=== PATIENT | female | born 1990 | race Two or more races ===

== ENCOUNTER → 2017-08-12 | Outpatient (CLI) | payer BC ==
[2017-08-12 09:59] LABS: Basophils # (auto) 0 uL; Basophils % (auto) 0.5 % (0.0-2.0); Eosinophils # (auto) 0.1 uL; Hematocrit 40.8 % (36.0-46.0); Hemoglobin 14.1 g/dL (12.2-16.2); Lymphocytes # (auto) 1.1 uL; Lymphocytes % (auto) 17.7 % (10.0-50.0); Mean Corpuscular Hemoglobin 31.6 pg (28.0-32.0); Mean Corpuscular Hgb Conc. 34.5 g/dL (32.0-36.0); Mean Corpuscular Volume 91.9 fL (80.0-100.0); Monocytes # (auto) 0.5 uL; Monocytes % (auto) 7.8 % (0.0-12.0); Neutrophils # (auto) 4.6 uL; Nucleated Red Blood Cells % 0.1 %; Platelet Count (auto) 268 10^3/uL (140-450); Red Blood Cells 4.44 10^6/uL (4.0-5.20); Red Cell Distribution Width 13.5 % (11.8-14.3); White Blood Cell 6.3 10^3/uL (4.4-10.8)
[2017-08-12 10:15] LABS: Alcohol, Urine < 3.0 mg/dL (0-5); Amphetamine Screen, Urine NEGATIVE (NEGATIVE); Barbiturate Scree,Urine NEGATIVE (NEGATIVE); Benzodiazephine Screen, Urine NEGATIVE (NEGATIVE); Cannabinoid Screen, Urine NEGATIVE (NEGATIVE); Cocaine Screen, Urine NEGATIVE (NEGATIVE); Opiate Scree,Urine NEGATIVE (NEGATIVE); Phencyclidine Screen, Urine NEGATIVE (NEGATIVE)
[2017-08-13 04:15] LABS: RPR Non Reactive (Non Reactive)
== END | disposition home or self-care (01) ==
LOC: LAB 09:16
PROVIDERS: ATTEND Obstetrics & Gynecology
DX: Z34.80 Encounter for supervision of other normal pregnancy, unspecified trimester (principal); Z3A.00 Weeks of gestation of pregnancy not specified
CPT/HCPCS: 36415; 80307; 81220; 83036; 84144; 84702; 85025; 86592; 86703; 86762; 86850; 86900; 86901; 87086; 87340

== ENCOUNTER 2021-06-06 09:17 | Emergency (ER) | payer BC, MEDICAID ==
[~2021-06-06] VITALS: Ht 165.1 cm; Wt 65.8 kg
[2021-06-06] MEDS ORDERED: IBUPROFEN 400 MG TAB PO ONE (15:30)
[2021-06-06 17:28] VITALS: BP 120/72
== END 2021-06-06 17:29 | disposition home or self-care (01) ==
LOC: ER 09:17
DX: M79.605 Pain in left leg (principal); M79.604 Pain in right leg; J45.909 Unspecified asthma, uncomplicated
CPT/HCPCS: 73610; 73630; 93971

== ENCOUNTER 2024-11-30 12:57 | Inpatient (IN) | payer MEDICAID, OTHER ==
[~2024-11-30] VITALS: Ht 167.6 cm; Wt 85.5 kg
--- NOTE | 2024-11-30 14:08 | ED.PDOC ---
Musculoskeletal HPI Comments 34 year old female presents to the ED for the c/c of 6/10 Left Forearm pain. Pt states that she was working out 1x week ago when she layed on her arm during an exercise causing pain. Pt states that her pain has progressively gotten worse, and now radiates down her hand as well as up into her shoulder. No gross abnormality notes, and Localized TTP to the Forearm. Denies fevers chills night sweats nausea vomiting redness around the forearm Denies previous surgeries to the arm or significant injury Numbness/tingling down the arm Denies changes, shortness of breath Chief Complaint: Upper Extremity Time Seen by MD: 13:56 Primary Care Provider: Lev GILLETTE Reviewed Notes: Nurses Notes, Medications, Allergies Allergies: Coded Allergies: Latex (Unverified Allergy, Unknown, 12/01/24) Nifedipine (Unverified Allergy, Unknown, 12/01/24) Home Meds Reported Medications Desogestrel & Ethinyl Estradio (ENSKYCE) Tab, 1 TAB PO DAILY 12/01/24 Information Source: Patient Mode of Arrival: Ambulatory Location: Left Extremity Location: Arm Timing: Weeks Prehospital treatment: None Severity: Mild Able to Move Extremity: Yes Bear Weight: Fully Pain: Mild Hand Dominance: Right Mechanism: None Circumstances: Sporting Onset of Symptoms: After Trauma Symptoms: Pain DVT Risk Factors: NONE Last Tetanus: Unknown Associated signs and symptoms: Arm pain Past Medical History PAST MEDICAL HISTORY: Asthma, Seizures Surgical History: Denies all surgeries DECK STEWARD History: No Pertinent DECK STEWARD History Family History Family History: Reviewed,noncontributory to illness Social History Smoker: Non-Smoker Alcohol: Denies ETOH Use Drugs: Denies Drug Use Lives In: Home Constitutional: denies: chills, diaphoresis, fatigue, fever, malaise, sweats, weakness, others EENTM: denies: blurred vision, double vision, ear bleeding, ear discharge, ear drainage, ear pain, ear ringing, eye pain, eye redness, hearing loss, mouth pain, mouth swelling, nasal discharge, nose bleeding, nose congestion, nose pain, photophobia, tearing, throat pain, throat swelling, voice changes, others Respiratory: denies: cough, hemoptysis, orthopnea, SOB at rest, shortness of breath, SOB with excertion, stridor, wheezing, others Cardiovascular: denies: chest pain, dizzy spells, diaphoresis, Dyspnea on exertion, edema, irregular heart beat, left arm pain, lightheadedness, palpitations, PND, syncope, others Gastrointestinal: denies: abdomen distended, abdominal pain, blood streaked bowels, constipated, diarrhea, dysphagia, difficulty swallowing, hematemesis, melena, nausea, poor appetite, poor fluid intake, rectal bleeding, rectal pain, vomiting, others Genitourinary: denies: abnormal vagina bleeding, burning, dyspareunia, dysuria, flank pain, frequency, hematuria, incontinence, pain, , vagina discharge, urgency, others Neurological: denies: dizziness, fainting, headache, left sided numbness, left sided weakness, numbness, paresthesia, pre-existing deficit, right sided numbness, right sided weakness, seizure, speech problems, tingling, tremors, w eakness, others Musculoskeletal: reports: others (Left arm pain); denies: back pain, gout, joint pain, joint swelling, muscle pain, muscle stiffness, neck pain Integumetry: denies: bruises, change in color, change in hair/nails, dryness, laceration, lesions, lumps, rash, wounds, others Allergic/Immunocompromised: denies: Difficulty Healing, Frequent Infections, Hives, Itching, others Hematologic/Lymphatic: denies: anemia, blood clots, easy bleeding, easy bruising, swollen glands, others Endocrine: denies: excessive hunger, excessive sweating, excessive thirst, excessive urination, flushing, intolerance to cold, intolerance to heat, unexplained weight gain, unexplained weight loss, others Psychiatric: denies: anxiety, bipolar disorder, depression, hopeless, panic disorder, schizophrenia, sleepless, suicidal, others All Other Systems: Reviewed and Negative Physical Exam General Appearance: Mild Distress, Normal HEENT: Normal ENT Inspection, Pharynx Normal, TMs Normal Neck: Full Range of Motion, Normal, Normal Inspection Respiratory: Chest Non-Tender, Lungs Clear, No Respiratory Distress, Normal Breath Sounds Cardiovascular: No JVD, No Murmur, Normal Peripheral Pulses, Regular Rate/Rhythm Breast Exam: Deferred Gastrointestinal: Non Tender, No Pulsatile Mass, Normal Bowel Sounds, Soft Genitalia: Deferred Pelvic: Deferred Rectal: Deferred Extremities: No calf tenderness, Non-tender, No pedal edema Musculoskeletal : Location: Left Extremity Location: Arm (No gross abnormality, Localized TTP to forearm, No erythema or swelling noted. ) Apperance: Normal Neurologic: Alert, No Motor Deficits, Normal Mood Cerebellar Function: Normal Reflexes: Normal Skin: Dry, Normal Color, Warm Lymphatic: No Adenopathy Was a procedure done? Was a procedure done?: No Differential Diagnosis EXT Differential Diagnosis: Cellulitis, Compartment Syndrome, Fracture, Sprain, D islocation, Contusion, Strain, Neurovascular injury X-Ray, Labs, Meds, VS Vital Signs Date Time Temp Pulse Resp B/P (MAP) Pulse Ox O2 Delivery O2 Flow Rate FiO2 11/30/24 22:00 77 19 110/73 (85) 96 11/30/24 20:00 80 11/30/24 20:00 82 12 97 Room Air* 0 21 11/30/24 19:58 98.3 82 12 116/88 (97) 97 98.3 11/30/24 18:00 77 15 96 Room Air* 0 21 11/30/24 18:00 76 11/30/24 17:20 83 13 129/52 (77) 98 11/30/24 13:23 98.3 84 16 103/72 (82) 96 98.3 Lab Test 11/30/24 04:25 Range/Units Urine Test Negative Negative Current Medications Medications (Trade) Dose Ordered Sig/[place] Route Start Time Stop Time Status Last Admin Enoxaparin Sodium (Lovenox) 76 mg ONCE ONCE SC 11/30/24 17:30 11/30/24 17:31 DC 11/30/24 17:41 X-Ray, Labs, Meds, VS Comment 34 year old female presents to the ED for the c/c of 6/10 Left Forearm pain. Patient arrives alert and oriented, ABC's intact, afebrile, vital signs stable, saturating well in room air Diagnostic imaging ordered by me and results interpreted by radiology :Impression: No deep venous thrombus identified in the LEFT upper extremity vessels evaluated above.Positive thrombus is present in the left brachial vein. Spoke with Dr. iLon. IR: at . reports she does not reach subclavian vein. No indication for thrombectomy at this time The patient's workup reveals that the patient needs further evaluation and/or treatment for the above medical conditions. Patient verbalized understanding of the above and is awaiting further evaluation by the admitting service. Additional MDM Review of External, Non-ED records: External records reviewed. Discussion with independent historian (EMS, family) history obtained from the patient/parents (if applicable) at bedside Chronic conditions affecting care: None Social determinants of health affecting care: None Time of 1ST Reevaluation: 14:26 Reevaluation 1ST: Unchanged Patient Education/Counseling: Diagnosis, Treatment Family Education/Counseling: No Family Present Departure 1 Departure Time of Disposition: 16:34 Impression: Primary Impression: Brachial vein thrombosis, left Qualified Codes: I82.622 - Acute embolism and thrombosis of deep veins of left upper extremity Disposition: ADMITTED INPATIENT Condition: Serious Critical Care Note Critical Care Time?: No Stability Stability form required: No Heart Score Heart Score: Heart Score Response (Comments) Value History N/A 0 EKG N/A 0 Age N/A 0 Risk Factors N/A 0 Troponin N/A 0 Total 0 I personally scribed for VIPIN NEWSOME NP ([email or web address]) on 11/30/24 at 14:08. Electronically submitted by Reji Bautista ([email or web address]). I personally scribed for VIPIN NEWSOME NP ([email or web address]) on 11/30/24 at 14:47. Electronically submitted by Reji Bautista ([email or web address]). VIPIN NEWSOME NP Nov 30, 2024 14:08
--- NOTE | 2024-11-30 14:33 | DVH ---
LEFT Upper Extremity Venous Duplex Clinical History: r/o dvt Comparison: None Technique: Duplex Doppler evaluation of the venous system of the LEFT lower neck and upper extremity including color Doppler and spectral/pulsed waveform analysis was performed. Findings: The internal jugular vein demonstrates appropriate compressibility and waveform variability. The subclavian vein is patent on color Doppler evaluation without intraluminal thrombus and demonstra jessica waveform variability. The visualized portion of the brachiocephalic vein is patent on color Doppler evaluation without intr aluminal thrombus and demonstrates waveform variability. The axillary vein demonstrates appropriate compressibility and waveform variability. The brachial vein demonstrates noncompressibility and possible thrombus. The basilic vein demonstrates appropriate compressibility and patency on Doppler evaluation. The cephalic vein demonstrates appropriate compressibility and patency on Doppler evaluation. Impression: No deep venous thrombus identified in the LEFT upper extremity vessels evaluated above. Positive thrombus is present in the left brachial vein.
[2024-11-30] MEDS ORDERED: ENOXAPARIN SOD 100 MG/1 ML SYRINGE SC ONE (16:45)
[2024-11-30] MEDS: ENOXAPARIN SOD 80 MG/0.8ML SYRINGE SC ONE (17:41)
[2024-11-30 18:00] VITALS: PULSE 77; RESP 15; O2SAT 96
[2024-11-30 20:00] VITALS: PULSE 82; RESP 12; O2SAT 97
--- NOTE | 2024-11-30 22:55 | DVHHP2 ---
History of Present Illness History of Present Illness This is a 34-year-old female with past medical history of Breast augmentation surgery in 2016, recently started OCP x2 months ago came to ED with the complain of left forearm pain for 1 week which is getting worse day by day, 5 - 7/10 intensity. aggravated on movement and mild relieved on rest, radiates to arm and shoulder. Patient denies any recent history of sick contact/trauma/injury/MVA/any recent IV drug use. No family history of blood coagulation disorder. Patient denies any fever, chest pain, cough, SOB, abdominal pain, dysuria or any acute distress. PAST MEDICAL HISTORY: Nothing contributory Surgical History: Breast augmentation surgery in 2016 [employer]ANCE History: LMP 3 WEEKS AGO Family History: noncontributory Social History Smoker: Non-Smoker Alcohol: Denies ETOH Use Drugs: Denies Drug Use Lives In: Home ALLERGY: LATEX, PROCARDIA PCP: UNKNOWN Review of Systems Constitutional: No: Fever, Chills, Sweats, Weakness, Malaise, Other Eyes: No: Pain, Vision change, Conjunctivae inflammation, Eyelid inflammation, Other, Redness ENT: No: Ear pain, Ear discharge, Nose pain, Nose discharge, Nose congestion, Mouth pain, Mouth swelling, Throat pain, Throat swelling, Other Respiratory: No: Cough, Dry, Shortness of breath, SOB with excertion, Wheezing, Hemoptysis, Pleuritic Pain, Sputum, Wheezing, Other Cardiovascular: No: Chest Pain, Palpitations, Orthopnea, Paroxysmal Noc. Dyspnea, Edema, Lt Headedness, Other Gastrointestinal: No: Nausea, Vomiting, Abdominal Pain, Diarrhea, Constipation, Melena, Hematochezia, Other Genitourinary: No Dysuria, No Frequency, No Incontinence, No Hematuria, No Retention, No Other Musculoskeletal: shoulder pain, arm pain Skin: No: Rash, Lesions, Jaundice, Bruising, Other Neurological: No: Weakness, Numbness, Incoordination, Change in speech, Confusion, Seizures, Other Allergies: Coded Allergies: Latex (Unverified Allergy, Unknown, 12/01/24) Nifedipine (Unverified Allergy, Unknown, 12/01/24) Exam Vital Signs Vital Signs Date Time Temp Pulse Resp B/P (MAP) Pulse Ox O2 Delivery O2 Flow Rate FiO2 11/30/24 22:00 77 19 110/73 (85) 96 11/30/24 20:00 Room Air* 0 21 11/30/24 19:58 98.3 98.3 General Appearance: Alert, Oriented X3, Cooperative, mild distress HEENT: Atraumatic, PERRLA, EOMI Respiratory: Clear to auscultation, Normal air movement Cardiovascular: Regular rate, Normal S1, Normal S2 Abdominal: Normal bowel sounds, Soft, No tenderness, No hepatospenomegaly, No masses Extremities: No clubbing, No cyanosis, No edema, Normal pulses, Other (TENDERNESS PRESENT LEFT FOREARM AND ARM ON DEEP PALPATION AND MOVEMENT) Skin: No rashes, No breakdown, No significant lesion SEPSIS Sepsis Screen Date sepsis recognized/suspect: Nov 30, 2024 Time Sepsis recognized/suspect: 1322 Recent Procedure: No On Antibiotic Therapy: No Respiratory Rate >20: No Heart Rate >90: No Temp<36 C (96.8 F) or >38.3 C: No SBP <90 or MAP <65 mmHG: No New Acute Mental Status Change: No Is the patient on CPAP, BIPAP,: No Physician Orders Admit (11/30/24 22:52) Nitroglycerin Sublingual (Ntrostat Subli (11/30/24 23:00) Morphine Sulfate Injection (11/30/24 23:00) Vital Signs Date Time Temp Pulse Resp B/P (MAP) Pulse Ox O2 Delivery O2 Flow Rate FiO2 11/30/24 22:00 77 19 110/73 (85) 96 11/30/24 20:00 80 11/30/24 20:00 82 12 97 Room Air* 0 21 11/30/24 19:58 98.3 82 12 116/88 (97) 97 98.3 11/30/24 18:00 77 15 96 Room Air* 0 21 11/30/24 18:00 76 11/30/24 17:20 83 13 129/52 (77) 98 Medications Medications Dose Ordered Sig/[place] Route Start Time Stop Time Status Last Admin Dose Admin Enoxaparin Sodium 76 mg ONCE ONCE SC 11/30/24 17:30 11/30/24 17:31 DC 11/30/24 17:41 76 MG Assessment/Plan Assessment/Plan # INTRACTABLE LEFT UPPER EXTREMITY PAIN DUE TO LEFT BRACHIAL VEIN THROMBOSIS -Patient came with left upper extremity pain -Received enoxaparin 76 mg sc in ED. -US UPPER EXT : No deep venous thrombus identified in the LEFT upper extremity vessels evaluated above. Positive thrombus is present in the left brachial vein. -PT, PTT, test, LFT -Enoxaparin 65 mg sc b.i.d. -NORCO 5-325 mg p.o. q.6 p.r.n. for tujpjipw-ji-jnvosp pain. # PROVOKED DVT DUE TO OCP USE -Patient recently started oral contraceptive pill x 2 months -Stopped OCP as it can provoke DVT. -Age-appropriate cancer screening to rule out DVT-as outpatient # OBESITY, BMI 30.0 -Lifestyle modification DIET: Regular GI prophylaxis: Famotidine 20 mg p.o. b.i.d. DVT prophylaxis: Patient on enoxaparin for DVT. Goals of care discussions, more than 26 minute spent. Full code status. Case discussed with Dr. Larose. Plan discussed with: Patient, Other (NURSE) My Orders Orders - NATE BRYANT Procedure Category Date Status Time Admit ADMIT 11/30/24 Verified 22:52 Nitroglycerin PHA 11/30/24 Verified Sublingual (Ntrostat 23:00 Morphine Sulfate PHA 11/30/24 Verified Injection 23:00 Date of Service: Nov 30, 2024 Billing Provider: NEETA LAROSE MD Common Visit Codes: [id number] INP/OBS CARE (HIGH) Secondary Visit Codes: [id number] CARE PLAN 30 MINUTES NATE BRYANT Nov 30, 2024 22:55
[2024-11-30] MEDS ORDERED: NITROGLYCERIN 0.4 MG SL TAB SL PRN (23:00)
[2024-11-30] MEDS ORDERED: MORPHINE SULFATE INJ 2 MG/ml SYRG IV PRN (23:00)
[2024-12-01] VITALS (9 sets, daily range): BP systolic 109–136; BP diastolic 65–90; PULSE 64–99; RESP 16–20; TEMP 95.2–99.8; O2SAT 96–100
[2024-12-01] MEDS: PANTOPRAZOLE 40 MG TAB PO ONE (00:13)
[2024-12-01] MEDS ORDERED: DESO1TAB PO (01:52)
--- NOTE | 2024-12-01 05:13 | DVH ---
CHEST RADIOGRAPH Indication: R/O PULMONARY DISEASE Technique: Single frontal view of the chest was obtained COMPARISON: None FINDINGS: Lines and Tubes: None Lungs: Clear Pleura: No effusion. No pneumothorax. Cardiomediastinal contours: Unremarkable Bones: Unremarkable IMPRESSION: 1. No acute disease.
[2024-12-01] MEDS: ENOXAPARIN SOD 80 MG/0.8ML SYRINGE SC SCH (05:25)
[2024-12-01] MEDS: PANTOPRAZOLE 40 MG TAB PO SCH (05:26)
[2024-12-01] MEDS: HYDROcodone-ACET 5/325MG TAB PO PRN (05:31)
[2024-12-01 07:01] LABS: Alanine Aminotransferase < 9 U/L (7-40); Bilirubin, Total 0.3 mg/dL (0.2-1.0)
--- NOTE | 2024-12-01 07:50 | DVHPNRES ---
Progress Note Date Seen: Dec 01, 2024 Resident Creating Document: GUILLERMO SCOTT RESIDENT Has the PT tested + for MRSA If YES, has PT been informed?: No Medical Necessity Reason Pt with a Central, PICC or Fol: No Subjective Review of Systems 34-year-old female with past medical history of Breast augmentation surgery in 2016, recently started OCP came to ED with complaint of left forearm pain for 1 week which is getting worse day by day, 7/10 intensity, aggravated on movement and relieved on rest, radiates to arm and shoulder. Patient denies any recent history of sick contact/trauma/injury/MVA/any recent IV drug use. No family history of blood coagulation disorder. There are family history of breast cancer. Patient denies any fever, chest pain, cough, SOB, abdominal pain, dysuria or any acute distress. Patient had left upper extremity pain due to left brachial vein thrombosis. Left Upper Extremity Venous Duplex shows positive thrombus is present in the left brachial vein and no deep venous thrombus identified in the Left Upper extremity vessels evaluated above. Chest X-ray shows no acute disease. We have started on [place] and Lovenox. Today patient still has pain. CT scan of Left Upper Extremity with contrast and Coagulation studies are ordered. Breast examination was performed and reveal normal. Patient reports: No new complaints Changes from previous H/P or p: No Changes Objective vital signs Vital Sign Date Time Temp Pulse Resp B/P (MAP) Pulse Ox O2 Delivery O2 Flow Rate FiO2 12/01/24 05:00 98.6 99 18 125/83 (97) 98 98.6 12/01/24 01:45 Room Air* 0 21 Total Intake and Output 11/30/24 11/30/24 12/01/24 14:59 22:59 06:59 Intake Total 80 ml Balance 80 ml medications Current Medications Medications Dose Ordered Sig/[place] Route Start Time Stop Time Status Last Admin Dose Admin Nitroglycerin 0.4 mg Q5MINP PRN SL 11/30/24 23:00 Morphine Sulfate 2 mg Q30M PRN IV 11/30/24 23:00 Pantoprazole Sodium 40 mg DAILY@0600 PO 12/01/24 06:00 12/01/24 05:26 40 MG Enoxaparin Sodium 80 mg Q12H SC 12/01/24 05:00 12/01/24 05:25 80 MG Acetaminophen/ Hydrocodone Bitart 1 tab Q6HPRN PRN PO 12/01/24 01:45 12/01/24 05:31 1 TAB Examination Constitutional: No: Fever, Chills, Sweats, Weakness, Malaise, Other Eyes: No: Pain, Vision change, Conjunctivae inflammation, Eyelid inflammation, Other, Redness ENT: No: Ear pain, Ear discharge, Nose pain, Nose discharge, Nose congestion, Mouth pain, Mouth swelling, Throat pain, Throat swelling, Other Respiratory: No: Cough, Dry, Shortness of breath, SOB with excertion, Wheezing, Hemoptysis, Pleuritic Pain, Sputum, Wheezing, Other Cardiovascular: No: Chest Pain, Palpitations, Orthopnea, Paroxysmal Noc. Dyspnea, Edema, Lt Headedness, Other Gastrointestinal: No: Nausea, Vomiting, Abdominal Pain, Diarrhea, Constipation, Melena, Hematochezia, Other Genitourinary: No Dysuria, No Frequency, No Incontinence, No Hematuria, No Retention, No Other Musculoskeletal: shoulder pain, arm pain Skin: No: Rash, Lesions, Jaundice, Bruising, Other Neurological: No: Weakness, Numbness, Incoordination, Change in speech, Confusion, Seizures, Other Allergies: Coded Allergies: Latex (Unverified Allergy, Unknown, 12/01/24) Nifedipine (Unverified Allergy, Unknown, 12/01/24) Problem List/Assessment/Plan Problem List/Assessment/Plan # INTRACTABLE LEFT UPPER EXTREMITY PAIN DUE TO LEFT BRACHIAL VEIN THROMBOSIS -Patient came with left upper extremity pain -Received enoxaparin 76 mg sc in ED. -US UPPER EXT : No deep venous thrombus identified in the LEFT upper extremity vessels evaluated above. Positive thrombus is present in the left brachial vein. -PT, PTT, test, LFT -Enoxaparin 65 mg sc b.i.d. -NORCO 5-325 mg p.o. q.6 p.r.n. for [id number] pain. -CT scan to left upper extremity # PROVOKED DVT DUE TO OCP USE -Patient recently started oral contraceptive pill x 2 months -Stopped OCP as it can provoke DVT. -Age-appropriate cancer screening to rule out DVT-as outpatient # OBESITY, BMI 30.0 -Lifestyle modification DIET: Regular GI prophylaxis: Famotidine 20 mg p.o. b.i.d. DVT prophylaxis: Patient on enoxaparin for DVT. Goals of care discussions, more than 26 minute spent. Full code status. Case discussed with Dr. Bonilla. Plan discussed with: Patient, Other (NURSE) Plan discussed with: Patient, Other Sepsis reassessment post fluid Is the fluid challenge complet: No Respiratory Effort: Non-Labored Respiratory Pattern: Regular Date of Service: Dec 01, 2014 Billing Provider: IRAIS BONILLA MD Common Visit Codes: [id number] INP/OBS CARE(HIGH) GUILLERMO SCOTT RESIDENT Dec 01, 2024 07:50 IRAIS BONILLA MD Dec 01, 2024 22:06
[2024-12-01 08:20] LABS: Hematocrit 38.0 % (36.0-46.0); Hemoglobin 13.1 g/dL (12.2-16.2); Mean Corpuscular Hemoglobin 30.6 pg (28.0-32.0); Mean Corpuscular Volume 88.5 fL (80.0-100.0); Nucleated Red Blood Cells % 0.0 %
[2024-12-01 10:51] LABS: Chloride 105 mmol/L (98-107); Potassium 4.1 mmol/L (3.5-5.1); Sodium 138 mmol/L (136-145)
[2024-12-01 10:52] LABS: Anion Gap 10 (5-15); Calcium 9.7 mg/dL (8.7-10.4); Carbon Dioxide 23 mmol/L (20-31)
[2024-12-01 10:57] LABS: BUN/Creatinine Ratio 17.8 (10.0-20.0); Blood Urea Nitrogen 13 mg/dL (9-23); Glucose 79 mg/dL (74-106)
[2024-12-01 11:22] LABS: Amphetamine Screen, Urine Neg (NEGATIVE); Barbiturate Scree,Urine Neg (NEGATIVE); Benzodiazephine Screen, Urine Neg (NEGATIVE); Cannabinoid Screen, Urine Neg (NEGATIVE); Cocaine Screen, Urine Neg (NEGATIVE); Opiate Scree,Urine Neg (NEGATIVE); Phencyclidine Screen, Urine Neg (NEGATIVE)
[2024-12-01] MEDS ORDERED: IOHEXOL 350 MG/ML 100ML IJ ONE (14:07)
[2024-12-01 14:32] LABS: INR 0.96 (0.9-1.15); Partial Thromboplastin Time 32.2 SEC (24.5-34.5); Prothrombin Time 10.2 sec (9.3-11.8)
--- NOTE | 2024-12-01 16:36 | DVH ---
EXAM: CT LT UPPER EXTREMITY W CONTRAS INDICATION: Thrombosis of left brachial vein EXAM DATE: 12/01/2024 02:15 PM COMPARISON: None TECHNIQUE: Multiple axial CT images of the left upper extremity were obtained using bone algorithm. A xial and coronal reformatting was done. Bone and soft tissue windows were reviewed. Radiation Dose Information: CT Dose: CTDI volume is 20.97 mGy. Dose-length product is 1653.79 mGy*cm Findings/Impression: There is no evidence of an acute fracture, dislocation, blastic, or lytic lesions. Left breast implant. No joint effusion or superficial soft tissue abnormalities. Left upper extremity arteries are patent. Venous system cannot be assessed on this exam.
[2024-12-01] MEDS: ACETAMINOPHEN 325 MG TAB PO PRN (18:46)
[2024-12-01] MEDS: ONDANSETRON HCL 4 MG/2 ML VIAL IV ONE (22:24)
[2024-12-01] MEDS: MORPHINE SULFATE INJ 2 MG/ml SYRG IV ONE (22:25)
--- NOTE | 2024-12-02 00:24 | DVH ---
COMPUTERIZED TOMOGRAPHY OF THE HEAD WITHOUT CONTRAST REASON FOR STUDY: SEVERE HEADACHE. COMPARISON: None TECHNIQUE: Helical tomographic scans were obtained through the brain. 2-D coronal and sagittal refor matted images are provided. Radiation optimization: All CT scans at this facility use at least one of these dose optimization techniques: Automated exposure control mA and/or kV adjustment per patient s ize (includes targeted exams where dose is matched to clinical indication) or iterative reconstructio n. RADIATION DOSE: CTDI: 60 mGy DLP: 1064 mGy-cm FINDINGS: No suspicious intracranial hyperdensity to suggest acute blood. There is no mass effect n or midline shift. There is no hydrocephalus. The suprasellar cistern is intact. The calvarium is inta ct. The visualized mastoid air cells and paranasal sinuses are clear. IMPRESSION: No acute intracranial abnormality.
[2024-12-02 01:00] VITALS: BP_SYST 111; BP_SYST 121; BP_DIAS 60; BP_DIAS 73; PULSE 69; PULSE 77; RESP 18; RESP 19; TEMP 97.7; TEMP 98.7; O2SAT 100; O2SAT 97
[2024-12-02 05:00] VITALS: BP 112/69; PULSE 66; RESP 16; TEMP 97.8; O2SAT 97
[2024-12-02 05:17] LABS: Hematocrit 38.0 % (36.0-46.0); Hemoglobin 13.1 g/dL (12.2-16.2); Mean Corpuscular Hemoglobin 30.4 pg (28.0-32.0); Mean Corpuscular Volume 87.9 fL (80.0-100.0); Nucleated Red Blood Cells % 0.1 %
[2024-12-02 05:30] LABS: Anion Gap 8 (5-15); Carbon Dioxide 25 mmol/L (20-31); Chloride 105 mmol/L (98-107); Potassium 3.8 mmol/L (3.5-5.1); Sodium 138 mmol/L (136-145)
[2024-12-02 05:31] LABS: Calcium 9.3 mg/dL (8.7-10.4)
[2024-12-02 05:36] LABS: BUN/Creatinine Ratio 14.1 (10.0-20.0); Blood Urea Nitrogen 10 mg/dL (9-23)
[2024-12-02 05:40] LABS: Glucose 108 mg/dL (74-106)
[2024-12-02 09:00] VITALS: BP 120/67; PULSE 74; RESP 17; TEMP 98.4; O2SAT 96
--- NOTE | 2024-12-02 10:38 | DVHPNRES ---
Progress Note Date Seen: Dec 02, 2024 Resident Creating Document: GUILLERMO SCOTT RESIDENT Has the PT tested + for MRSA If YES, has PT been informed?: No Medical Necessity Reason Pt with a Central, PICC or Fol: No Subjective Review of Systems 34-year-old female with past medical history of Migraine, Breast augmentation surgery in 2016, recently started OCP came to ED with complaint of left forearm pain for 1 week which is getting worse day by day, 7/10 intensity, aggravated on movement and relieved on rest, radiates to arm and shoulder. Patient denies any recent history of sick contact/trauma/injury/MVA/any recent IV drug use. No family history of blood coagulation disorder. There are family history of breast cancer. Patient denies any fever, chest pain, cough, SOB, abdominal pain, dysuria or any acute distress. Patient had left upper extremity pain due to left brachial vein thrombosis. Left Upper Extremity Venous Duplex shows positive thrombus is present in the left brachial vein and no deep venous thrombus identified in the Left Upper extremity vessels evaluated above. Chest X-ray shows no acute disease. We have started on [place] and Lovenox. Today patient still has pain. CT scan of Left Upper Extremity with contrast and Coagulation studies are ordered. Breast examination was performed and reveal normal. Upper extremity CT scan and Head CT scan was ordered and reveal normal. Rest Room Maid Consult was ordered. Patient reports: No new complaints Changes from previous H/P or p: No Changes Patient reports: No new complaints Changes from previous H/P or p: No Changes Objective vital signs Vital Sign Date Time Temp Pulse Resp B/P (MAP) Pulse Ox O2 Delivery O2 Flow Rate FiO2 12/02/24 09:00 98.4 74 17 120/67 (84) 96 98.4 12/02/24 08:00 Room Air* 0 21 Total Intake and Output 12/01/24 12/01/24 12/02/24 15:00 23:00 07:00 Intake Total 700 ml 600 ml Balance 700 ml 600 ml medications Current Medications Medications Dose Ordered Sig/[place] Route Start Time Stop Time Status Last Admin Dose Admin Pantoprazole Sodium 40 mg DAILY@0600 PO 12/01/24 06:00 12/02/24 05:36 40 MG Enoxaparin Sodium 80 mg Q12H SC 12/01/24 05:00 12/02/24 05:36 80 MG Acetaminophen/ Hydrocodone Bitart 1 tab Q6HPRN PRN PO 12/01/24 01:45 12/01/24 20:28 1 TAB Acetaminophen 650 mg Q6HP PRN PO 12/01/24 18:00 12/02/24 08:12 650 MG laboratory and microbiology Laboratory Tests 12/02/24 04:23 Test 12/02/24 04:23 Range/Units Serum Glucose 108 H 74-106 mg/dL Labs and/or images reviewed: Labs reviewed by me Problem List/Assessment/Plan Problem List/Assessment/Plan # INTRACTABLE LEFT UPPER EXTREMITY PAIN DUE TO LEFT BRACHIAL VEIN THROMBOSIS -Patient came with left upper extremity pain -Received enoxaparin 76 mg sc in ED. -US UPPER EXT : No deep venous thrombus identified in the LEFT upper extremity vessels evaluated above. Positive thrombus is present in the left brachial vein. -PT, PTT, test, LFT -Enoxaparin 65 mg sc b.i.d. -NORCO 5-325 mg p.o. q.6 p.r.n. for [id number] pain. -CT scan to left upper extremity # PROVOKED DVT DUE TO OCP USE -Patient recently started oral contraceptive pill x 2 months -Stopped OCP as it can provoke DVT. -Age-appropriate cancer screening to rule out DVT-as outpatient # OBESITY, BMI 30.0 -Lifestyle modification DIET: Regular GI prophylaxis: Famotidine 20 mg p.o. b.i.d. DVT prophylaxis: Patient on enoxaparin for DVT. Goals of care discussions, more than 26 minute spent. Full code status. Case discussed with Dr. Sommer. Plan discussed with: Patient, Other (NURSE) Plan discussed with: Patient, Other My Orders My Orders Orders - GUILLERMO SCOTT Procedure Category Date Status Time * Rest Room Maid CONS 12/02/24 Transmitted Consult Sepsis reassessment post fluid Is the fluid challenge complet: No Respiratory Effort: Non-Labored Respiratory Pattern: Regular GUILLERMO SCOTT Dec 02, 2024 10:38
[2024-12-02] MEDS ORDERED: APIX5TAB PO (12:29)
[2024-12-02] MEDS ORDERED: FAMO20TA10 PO (12:29)
[2024-12-02] MEDS ORDERED: IBUP1TAB4 PO (12:29)
[2024-12-02 12:37] VITALS: BP 125/78; PULSE 71; RESP 16; TEMP 98.3; O2SAT 96
--- NOTE | 2024-12-02 17:27 | DVHDSRES ---
Discharge Summary Date of Admission Resident Creating Document: GUILLERMO SCOTT RESIDENT Nov 30, 2024 at 22:52 Date of Discharge: Dec 02, 2024 Admitting Diagnosis Left forearm pain Labs/Diagnostic Data: Laboratory Results Test 12/02/24 04:23 12/01/24 14:08 12/01/24 05:31 12/01/24 04:15 White Blood Count 9.6 10^3/uL (4.4-10.8) Red Blood Count 4.32 10^6/uL (4.0-5.20) Hemoglobin 13.1 g/dL (12.2-16.2) Hematocrit 38.0 % (36.0-46.0) Mean Corpuscular Volume 87.9 fL (80.0-100.0) Mean Corpuscular Hemoglobin 30.4 pg (28.0-32.0) Mean Corpuscular Hemoglobin Concent 34.6 g/dL (32.0-36.0) Red Cell Distribution Width 13.7 % (11.8-14.3) Platelet Count 311 10^3/uL (140-450) Mean Platelet Volume 8.6 fL (6.9-10.8) Neutrophils (%) (Auto) 78.8 % (37.0-80.0) Lymphocytes (%) (Auto) 18.6 % (10.0-50.0) Monocytes (%) (Auto) 2.3 % (0.0-12.0) Eosinophils (%) (Auto) 0.0 % (0.0-7.0) Basophils (%) (Auto) 0.3 % (0.0-2.0) Neutrophils # (Auto) 7.5 10 ^3/uL (1.6-8.6) Lymphocytes # (Auto) 1.8 10 ^3/uL (0.4-5.4) Monocytes # (Auto) 0.2 10 ^3/uL (0-1.3) Eosinophils # (Auto) 0 10 ^3/uL (0-0.8) Basophils # (Auto) 0 10 ^3/uL (0-0.2) Nucleated Red Blood Cells 0.1 % Sodium Level 138 mmol/L (136-145) Potassium Level 3.8 mmol/L (3.5-5.1) Chloride Level 105 mmol/L (98-107) Carbon Dioxide Level 25 mmol/L (20-31) Anion Gap 8 (5-15) Blood Urea Nitrogen 10 mg/dL (9-23) Creatinine 0.71 mg/dL (0.550-1.02) Glomerular Filtration Rate Calc 113 mL/min (>90) BUN/Creatinine Ratio 14.1 (10.0-20.0) Serum Glucose 108 mg/dL (74-106) Calcium Level 9.3 mg/dL (8.7-10.4) Prothrombin Time 10.2 sec (9.3-11.8) Prothrombin Time INR 0.96 (0.9-1.15) Activated Partial Thromboplast Time 32.2 SEC (24.5-34.5) Erythrocyte Sedimentation Rate 9 mm/hr (0-20) Total Bilirubin 0.3 mg/dL (0.2-1.0) Aspartate Amino Transferase (AST) 12 U/L (13-40) Alanine Aminotransferase (ALT) < 9 U/L (7-40) C-Reactive Protein High Sensitivity 1.03 mg/dL (<1.0) Urine Opiates Screen Neg (NEGATIVE) Urine Fentanyl Screen Neg (NEGATIVE) Urine Barbiturates Screen Neg (NEGATIVE) Urine Phencyclidine Screen Neg (NEGATIVE) Urine Amphetamines Screen Neg (NEGATIVE) Urine Benzodiazepines Screen Neg (NEGATIVE) Urine Cocaine Screen Neg (NEGATIVE) Urine Cannabinoids Screen Neg (NEGATIVE) Test 11/30/24 04:25 Urine Test Negative (Negative) Other Laboratory Tests 12/02/24 04:23 Brief Hx & Hospital Course: 34-year-old female with past medical history of Migraine, Breast augmentation surgery in 2016, recently started OCP came to ED with complaint of left forearm pain for 1 week which is getting worse day by day, 7/10 intensity, aggravated on movement and relieved on rest, radiates to arm and shoulder. Patient denies any recent history of sick contact/trauma/injury/MVA/any recent IV drug use. No family history of blood coagulation disorder. There are family history of breast cancer. Patient denies any fever, chest pain, cough, SOB, abdominal pain, dysuria or any acute distress. Patient had left upper extremity pain due to left brachial vein thrombosis. Left Upper Extremity Venous Duplex shows positive thrombus is present in the left brachial vein and no deep venous thrombus identified in the Left Upper extremity vessels evaluated above. Chest X-ray shows no acute disease. We have started on [place] and Lovenox. Today patient still has pain. CT scan of Left Upper Extremity with contrast and Coagulation studies are ordered. Breast examination was performed and reveal normal. Upper extremity CT scan and Head CT scan was ordered and reveal normal. Manufacturing Leader Consult was ordered. Condition at Discharge: Fair Final Diagnosis/Problems List # INTRACTABLE LEFT UPPER EXTREMITY PAIN DUE TO LEFT BRACHIAL VEIN THROMBOSIS # PROVOKED DVT DUE TO OCP USE # OBESITY, BMI 30.0 Discharge Disposition: Home SNF Discharge Will this Physician continue t: No Discharge Instruct/Medications Diet: Regular Activity: No Restrictions, As Tolerated Follow Up/Referral: Follow up with PCP in 1 week. Medications: As per EMR Continue other home medications Scheduled Apixaban Base (Eliquis), 5 MG PO BID Apixaban Base (Eliquis), 10 MG PO BID Famotidine (Pepcid Tablet), 1 TAB PO BID Ibuprofen Micronized (Ibuprofen), 400 MG PO TID Discontinued Medications Desogestrel & Ethinyl Estradio (Enskyce), 1 TAB PO DAILY, (Reported) Discharge Statement: "Patient was advised to return to the ER or call 911 if any headaches, dizziness, shortness of breath, chest pain, abdominal pain, bleeding, fevers, or worsening of medical condition. Patient was counseled about treatment plan, medications, possible side effects, patientverbalized understanding. All questions were answered to the best of my ability. This discharge took greater then 30 minutes in planning, reviewing documentation, counseling the patient, and discussing with other team members." ASSESSMENT ASSESSMENT Assessment Left forearm pain GUILLERMO SCOTT RESIDENT Dec 02, 2024 17:27
--- NOTE | 2024-12-03 11:59 | ECG ---
[facility] Test Date: 2024-12-01 Test Time: 22:37:13 Pat Name: DOLORES SPARROW Department: Room: 0288 B Gender: F Barnworker Groom: ABDOUL : 1990 Requested By: GUILLERMO YOU Order Number: [id number] Reading MD: Measurements Intervals [place] Rate: 66 P: 47 ND: 176 QRS: 78 QRSD: 86 T: 55 QT: 427 QTc: 448 Interpretive Statements Sinus rhythm Please click the below link to view image of tracing.
[2024-12-04] MEDS ORDERED: APIX5TAB PO (16:35)
== END 2024-12-02 14:40 | disposition home or self-care (01) | DRG 301 ==
LOC: ER 12:57 → OVERFLOW 22:52 → WEST WING 12-01 01:26
PROVIDERS: ADMIT Student in an Organized Health Care Education/Training Program; ATTEND Nurse Practitioner Family
DX: I82.622 Acute embolism and thrombosis of deep veins of left upper extremity (principal); E66.9 Obesity, unspecified; Z68.30 Body mass index [BMI] 30.0-30.9, adult; J45.909 Unspecified asthma, uncomplicated; Z91.040 Latex allergy status
CPT/HCPCS: 36415; 70450; 71045; 73201; 80048; 80307; 81025; 82247; 84450; 84460; 85025; 85610; 85652; 85730; 86141; 93005; 93971; 96374; 96375; G0378; J2405